=== PATIENT | male | born 1950 | race Caucasian/White ===

== ENCOUNTER 2024-08-05 10:16 | Day surgery (SDC) | payer MEDICARE ==
[2024-07-31 11:51] VITALS: BMI 27.8
[~2024-08-05 10:16] MED LIST: LACTATED RINGERS 1,000 ML IV SCH
[2024-08-05] MEDS: IV FLUID CONTINUATION 1,000 ML IV ONE ×2 (11:08→11:43)
[2024-08-05 11:31] VITALS: TEMP 98.2
[2024-08-05] MEDS ORDERED: PROPOFOL 10 MG/ML 20 ML VIAL IV ONE (11:45)
--- NOTE | 2024-08-05 12:09 | P.PCN ---
Date of Procedure: 08/05/24 Procedure(s) Performed: BRIEF HISTORY: Patient is a 74-year-old pleasant white male scheduled for an elective colonoscopy as a part of screening for colon cancer/positive Cologuard. His last colonoscopy was 25 years ago. PROCEDURE PERFORMED: Colonoscopy with snare polypectomy. PREOPERATIVE DIAGNOSIS: Screening for colon cancer/positive Cologuard. IV sedation per Anesthesia. PROCEDURE: After informed consent was obtained, the patient, was brought into the endoscopy unit. IV sedation was administered by Anesthesia under continuous monitoring. Digital rectal examination was normal. Initially the Olympus CF-160 flexible video colonoscope was then inserted in the rectum, gradually advanced into the cecum without any difficulty. Careful examination was performed as the scope was gradually being withdrawn. Ileocecal valve and the appendiceal orifice were visualized and appeared normal. Prep was excellent. Mucosa of the cecum, ascending colon, appeared normal. The hepatic flexure there was a 1 cm polyp removed by snare polypectomy. In the transverse colon there was a 5 mm and 7 mm polyp removed by snare polypectomy. Rectal transverse colon, descending colon, appeared normal. The distal sigmoid colon there was 5 mm, 1 cm and 1.5 cm inflamed looking polyps all which were removed by snare polypectomy. Moderate sigmoid diverticulosis seen. Rest of the sigmoid colon, and rectum appeared normal. Retroflexion was performed in the rectum and large prolapsing internal hemorrhoids were seen. The patient tolerated the procedure well. IMPRESSION: 1 cm hepatic flexure polyp status post polypectomy 5 mm and 7 mm transverse colon polyp status post polypectomy 5 mm, 1 cm and 1.5 cm distal sigmoid colon polyps status post polypectomy Moderate sigmoid diverticulosis Large prolapsing internal hemorrhoids RECOMMENDATIONS: Findings of this examination were discussed with the patient a s well as his family. He was advised to follow-up with the biopsy results.. If the biopsy reveals adenoma he can have repeat colonoscopy in 3 years. Advised to be on high-fiber diet and fiber supplements on a regular basis.
[2024-08-05 12:35] VITALS: BP 113/72; PULSE 81; RESP 18
== END 2024-08-05 12:50 | disposition home or self-care (01) ==
LOC: ORWHC2ENDO 10:16
PROVIDERS: ATTEND Internal Medicine Gastroenterology
DX: Z12.11 Encounter for screening for malignant neoplasm of colon (principal); D12.3 Benign neoplasm of transverse colon; D12.2 Benign neoplasm of ascending colon; D12.5 Benign neoplasm of sigmoid colon; K57.30 Diverticulosis of large intestine without perforation or abscess without bleeding; K64.8 Other hemorrhoids; I10 Essential (primary) hypertension; E78.5 Hyperlipidemia, unspecified; Z79.02 Long term (current) use of antithrombotics/antiplatelets; Z79.899 Other long term (current) drug therapy
CPT/HCPCS: 88305; 45385; J2704